=== PATIENT | male | born 1960 | race Caucasian/White ===

== ENCOUNTER 2021-08-11 18:36 | Emergency (ER) | payer BC, SELFPAY ==
[2021-08-11] VITALS (20 sets, daily range): BP systolic 109–163; BP diastolic 69–102; PULSE 50–72; RESP 9–20; TEMP 36.6–36.9; O2SAT 92–100
--- NOTE | ~2021-08-11 | CT_ITS ---
EXAMINATION: CT abdomen pelvis w con INDICATION: Left lower quadrant pain TECHNIQUE: Computed tomographic images of the abdomen and pelvis were obtained after the administrati on of 100 cc of Omnipaque 350 intravenous contrast. The dose-length product (DLP) was 1551.51 mGy-cm. Automated exposure control and iterative reconstruction technique were employed. COMPARISON: None available FINDINGS: Minimal dependent atelectasis is present in the lung bases. The heart size is normal. There is a small sliding hiatal hernia. The liver, spleen, pancreas, and adrenal glands are normal. Stones are present in the nondistended gallbladder. The right kidney is unremarkable. There is a 9.5 cm cys t of the left kidney. No pathologically enlarged abdominal or pelvic lymph nodes are identified. Ther e is no free intraperitoneal gas or evidence of bowel obstruction. Colonic diverticulosis is noted. T here is wall thickening of the sigmoid colon with edematous stranding of the adjacent pericolic fat. No pericolic abscess or perforation are identified. There is a small amount of inflammatory fluid in the pelvis. There is severe lumbar spondylosis. IMPRESSION: 1. Acute, uncomplicated sigmoid diverticulitis. 2. Cholelithiasis without evidence of cholecystitis. Reviewed, dictated and finalized at location [facility]
--- NOTE | 2021-08-11 18:58 | ED.ABDPAIN ---
HPI - Abdominal Pain General Chief Complaint: Abdominal Pain Stated Complaint: Abdominal Pain Time Seen by Provider: 08/11/21 18:40 Source: patient Mode of arrival: ambulatory Limitations: no limitations History of Present Illness HPI narrative: Patient is a 61-year-old male complaining of left lower quadrant pain, 5 out of 10, sharp, nonradiating started approximately 3 days ago. Patient denies any chest pain, shortness of breath, nausea, vomiting, diarrhea, GI bleeding, fever or chills. Patient was placed on oral antibiotics Cipro and Flagyl due to his history of diverticulitis which presented the same way. Related Data Home Medications Medication Instructions Recorded Confirmed aspirin 81 mg chewable tablet 81 mg PO DAILY 07/01/19 08/04/21 sildenafil 25 mg tablet 25 mg PO DAILY PRN 07/01/19 08/04/21 zl-3-[id number]-epa-fish oil-vit D3 300 cap PO DAILY cap 07/15/20 08/04/21 mg-1,000 mg-1,000 unit capsule albuterol sulfate 90 mcg/actuation 2 puff INHALATION Q4H PRN g 01/18/21 08/04/21 aerosol inhaler Allergies Allergy/AdvReac Type Severity Reaction Status Date / Time lisinopril Allergy Unknown cough Verified 08/04/21 14:51 Review of Systems Review of Systems: All systems reviewed & are unremarkable except as noted in HPI and below Constitutional: Constitutional: Denies body ache(s), Denies chills, Denies excessive sweating, Denies fatigue, Denies fever(s), Denies headache(s), Denies lethargy, Denies malaise, Denies weakness and Denies weight loss Eyes: Eyes: Denies blurry vision, Denies change in vision and Denies loss of vision ENT: Denies dizziness, Denies ear discharge, Denies headache(s), Denies lip swelling, Denies epistaxis, Denies nasal congestion, Denies neck pain, Denies throat swelling and Denies tongue swelling Cardiovascular: Cardiovascular: Denies chest pain, Denies chest pain at rest, Denies chest pain with activity, Denies diaphoresis, Denies rapid heart rate, Denies edema, Denies irregular heart rhythm, Denies lightheadedness, Denies palpitations, Denies dyspnea and Denies dyspnea on exertion Respiratory: Respiratory: Denies chest congestion, Denies cough, Denies hemoptysis, Denies dyspnea and Denies dyspnea on exertion Gastrointestinal: Gastrointestinal: Denies melena, Denies hematochezia, Denies diarrhea, Denies nausea, Denies vomiting and Denies hematemesis Musculoskeletal: Musculoskeletal: Denies abnormal gait, Denies deformity, Denies joint swelling, Denies limited range of motion, Denies neck pain and Denies numbness Neurologic: Denies Abnormal speech present, Denies abnormal gait, Denies confusion, Denies dizziness, Denies headache(s), Denies focal weakness, Denies loss of vision, Denies numbness, Denies Other visual disturbances, Denies Sensory deficit (Neuro) and Denies weakness Psychiatric: Psychiatric: Denies confusion, Denies depression, Denies auditory hallucinations, Denies homicidal ideation and Denies suicidal ideation Endocrine: Endocrine: Denies cold intolerance, Denies excessive sweating, Denies fatigue, Denies heat intolerance and Denies palpitations Hematologic/Lymphatic: Hematologic/Lymphatic: Denies easy bleeding and Denies easy bruising Allergic/Immunologic: Allergic/Immunologic: Denies lip swelling, Denies throat swelling and Denies tongue swelling PMFSH Past Medical History Medical History History of COVID-19 04/2020 Hx of diverticulitis of colon Obesity, unspecified Other hyperlipidemia Family History Family History Father Diabetes mellitus Hypertension Family history of elevated blood lipids Family history of cardiovascular disease Cerebrovascular accident Mother Diabetes mellitus Hypertension Family history of elevated blood lipids Social History Social History Alcohol intake: current
[2021-08-11] MEDS: SODIUM CHLORIDE 0.9% IV 1,000 ML 999 ML IV CONT (19:25)
[2021-08-11 19:26] LABS: Basophils Absolute Auto 0.2 K/mm3 (0.0-0.1); Basophils Percent Auto 1.3 % (0.2-1.2); Eosinophils Absolute Auto 0.8 K/mm3 (0-0.3); Eosinophils Percent Auto 6.1 % (0-4.4); Hematocrit 47.7 % (42.0-52.0); Immature Granulocyte Absolute 0.05 K/mm3 (0.00-0.031); Immature Granulocyte Percent A 0.4 % (0-0.5); Lymphocytes Absolute Auto 2.55 K/mm3 (0.9-3.2); Lymphocytes Percent Auto 20.2 % (18.3-44.2); Mean Corpuscular HGB Conc 33.5 g/dl (32-36); Mean Corpuscular Hemoglobin 29.7 pg (26-34); Mean Corpuscular Volume 88.7 fl (80-100); Mean Platelet Volume 10.8 fl (7.4-10.4); Monocytes Absolute Auto 0.9 K/mm3 (0.1-0.6); Monocytes Percent Auto 7.2 % (2.6-8.5); Neutrophils Absolute Auto 8.2 K/mm3 (1.3-6.7); Neutrophils Percent Auto 64.8 % (45.5-73.1); Platelet Count Result 233 k/mm3 (150-375); Red Blood Count 5.38 M/mm3 (4.6-6.20); Red Cell Distribution Width 12.2 % (11.5-14.5); White Blood Count 12.6 K/mm3 (4.5-10.0)
[2021-08-11 19:35] LABS: Lactic Acid Reflex 0.9 mmol/L (0.7-2.1)
[2021-08-11] MEDS: HYDROmorphone HCL INJ (*CRX) 1 MG/ML SYR 0.5 MG IV PUSH (19:37)
[2021-08-11] MEDS: PROMETHAZINE HCL 25 MG/ML AMPUL 12.5 MG IV PUSH (19:41)
[2021-08-11 19:52] LABS: Alanine Aminotransferase 21 U/L (4-50); Albumin Level 4.9 g/dL (3.5-5.1); Alkaline Phosphatase 110 U/L (38-126); Anion Gap 8 mmol/L (8-16); Aspartate Amino Transferase 31 U/L (17-59); Bilirubin,Total 0.8 mg/dL (0.2-1.3); Blood Urea Nitrogen 13 mg/dL (9-20); Calcium 9.7 mg/dL (8.4-10.2); Carbon Dioxide 30 mmol/L (22-30); Chloride 102 mmol/L (98-107); Estimated CRCL calculation 124 ml/min; Estimated Glomerular Filt Rate > 60; Glucose 111 mg/dL (65-110); Lipase 101 U/L (23-300); Potassium 3.9 mmol/L (3.4-5.0); Sodium 140 mmol/L (137-145)
[2021-08-11] MEDS: metroNIDAZOLE 500 MG/ISO 100ML 500 MG/100 ML BAG 100 MG IVPB (20:34)
--- NOTE | 2021-08-11 20:47 | PC.NURSE ---
Nurse Lelia was unable to scan Flagyl in room 8. Med was verified with cut out and marking machine operator and document manually
== END 2021-08-11 22:35 | disposition home or self-care (01) ==
PROVIDERS: Emergency Provider Emergency Medicine; PCP Family Medicine
DX: K57.32 Diverticulitis of large intestine without perforation or abscess without bleeding (principal); E78.49 Other hyperlipidemia; E66.9 Obesity, unspecified; Z68.36 Body mass index [BMI] 36.0-36.9, adult; Z86.16 Personal history of COVID-19; Z79.82 Long term (current) use of aspirin; K80.20 Calculus of gallbladder without cholecystitis without obstruction
CPT/HCPCS: 36415; 74177; 80053; 83605; 83690; 85025; 96361; 96365; 96366; 96367; 96375; 99284; J0696; J1170; J2550; J7030; Q9967

== ENCOUNTER → 2023-06-22 09:41 | Outpatient (CLI) | payer OTHER, SELFPAY ==
--- NOTE | ~2023-06-22 | MR_ITS ---
MRI of the right knee Clinical history: Medial meniscal tear Technique: Coronal proton density and proton density-weighted images, sagittal proton-density and T2 fat-sat images, and axial proton-density fat-saturated images were acquired. Findings: Anterior and posterior cruciate ligaments are intact. Medial collateral ligament and the la teral collateral ligament complex are intact. Popliteus tendon is intact. There is complex tearing of the posterior horn and body of the medial meniscus, with both vertical an d horizontal tear components. No lateral meniscal tear identified. Articular cartilage is well preserved throughout the knee. There is a intramedullary lesion of the di stal femur, most compatible with enchondroma, measuring 3.1 cm in maximum diameter. Extensor mechanism is intact. Small joint effusion and small Peter's cyst are present. Impression: Complex tearing of the medial meniscus, as detailed above. Small joint effusion with small Peter's cyst. 3.1 cm enchondroma at the distal femur. Reviewed, dictated and finalized at [facility]. SAFETY ASSISTANT Impression: Complex tearing of the medial meniscus, as detailed above. Small joint effusion with small Peter's cyst. 3.1 cm enchondroma at the distal femur.
== END ==
PROVIDERS: PCP Physician Assistant; Visit Provider Physician Assistant
DX: S83.221A Peripheral tear of medial meniscus, current injury, right knee, initial encounter (principal); X58.XXXA Exposure to other specified factors, initial encounter; S83.231A Complex tear of medial meniscus, current injury, right knee, initial encounter; M25.461 Effusion, right knee; M71.21 Synovial cyst of popliteal space [Baker], right knee
CPT/HCPCS: 73721

== ENCOUNTER 2023-10-22 09:10 | Outpatient (CLI) | payer OTHER, SELFPAY ==
--- NOTE | 2023-11-01 14:48 | WPDHOMESLEEP ---
Sleep Study - Home Unattended Date of Study: 10/22/23 Ordering Provider: Yas Nelson MD Interpreting Provider: Kady Colby MD Home Sleep Study Type: Watch PAT Height: 1.91 m Weight: 136.078 kg Body Mass Index: 37.5 Neck Circumference (inches): 19.5 [place]: 6 Reason for Sleep Study Loud snoring, nighttime gastric reflux Sleep History Tyrese Cottrell is a 63-year-old man with complaints of snoring and sometimes apnea. He never awakens from sleep feeling short of breath. He occasionally wakes at night with heartburn, belching or coughing.??He frequently snores, occasionally snores loudly enough that others complain. He never has trouble sleeping when he has a cold. He never wakes up gasping for breath during the night. He occasionally has breathing problems at night. He never sweats excessively at night. He never notices his heart pounding or beating irregularly during the night. He rarely falls asleep during the day. He never falls asleep involuntarily, never falls asleep while driving. He never experiences loss of muscle tone with strong emotion. He never has daytime difficulty at work due to excessive sleepiness. He never feels paralyzed on waking or falling asleep. He rarely experiences vivid dreams upon waking or falling asleep. He never feels afraid of going to sleep. He rarely has nightmares. He occasionally recalls his dreams. He occasionally has thoughts racing through his mind when he wakes up in the middle of the night or when he wakes up in the early childhood hours. He never feels sad or depressed. He rarely feels anxiety. He rarely notices parts of his body jerk. He frequently kicks during the night. He never feels crawling or aching feelings in his legs. He rarely feels leg pain at night. He never has morning jaw pain, never grinds his teeth at night. He never feels bothered by pain during the day, never awakened by pain during the night. He occasionally wakes up feeling stiff in the morning, and he occasionally wakes feeling sore or achy. He rarely awakens with pain in his neck, spine, or joints. Normal bedtime is 10:00 p.m., falling asleep within 15-20 minutes, waking twice at night to urinate, returns to sleep within 5 minutes. Wake time is 6:00 a.m.. He typically gets 7 and a half hours of sleep per night. He takes no naps in the day, and if he does nap, does not feel refreshed afterwards. He works some split shifts. Habits:??Tobacco: never smoker Caffeine:2 servings per day. Alcohol:small amounts, less than a half a drink per day Recreational substances: none PMFSH Past Medical History Medical History History of COVID-19 04/2020 Hx of diverticulitis of colon Obesity, unspecified Other hyperlipidemia Uncontrolled type 2 diabetes mellitus with microalbuminuria Surgical History Surgical History S/P arthroscopic partial lateral meniscectomy of right knee Status post trigger finger release right hand 2nd and 4th fingers Family History Family History Father Diabetes mellitus Hypertension Family history of elevated blood lipids Family history of cardiovascular disease Cerebrovascular accident Mother Diabetes mellitus Hypertension Family history of elevated blood lipids Social History Social History Smoking status: Never smoker Second hand tobacco smoke exposure: No Alcohol intake: current Alcohol use details: occasionally Substance use: never Substance use type: does not use Do You Feel Safe in your Home?: Yes Lack of Transportation: No Lack of Food: Never True Current Housing: I Have Housing Concerned About Future Housing: No Difficulty Paying Gas/Electric Bills: No Difficulty Paying for Meds: No Currently Unemployed: No Education: [employer]
[2023-11-08 23:49] VITALS: BMI 37.5
== END 2023-10-25 07:30 | disposition home or self-care (01) ==
LOC: ANHCSM 09:11
PROVIDERS: PCP Family Medicine; Visit Provider Family Medicine
DX: G47.30 Sleep apnea, unspecified (principal); E11.9 Type 2 diabetes mellitus without complications
CPT/HCPCS: 95800

== ENCOUNTER 2023-12-03 09:41 | Outpatient (CLI) | payer OTHER, SELFPAY ==
--- NOTE | 2023-12-13 12:10 | WPDHOLTEREM ---
Holter/Event Monitor Holter/Event Monitor Date of procedure: 12/03/23 Holter/Event Procedure: 48 Hr Holter Monitor Indications: Atrial flutter Conclusion: 1. 48 hour holter monitor on 12/03/23. 2. Underlying rhythm is sinus rhythm. HR range 39-108 bpm; average HR 64 bpm. HR at 39 bpm was at 06:21. 3. There are 5,978 premature supraventricular complexes, 71 supraventricular couplets, 1,396 supraventricular bigeminy, and 1,326 supraventricular trigeminy. No supraventricular tachycardia. 4. There are 731 premature ventricular complexes, 5 ventricular couplets. No ventricular tachycardia. 5. No sinoatrial or atrioventricular blocks. No significant pauses greater than 2 seconds. 6. No symptoms available for correlation.
== END 2023-12-03 09:42 | disposition home or self-care (01) ==
LOC: ANHCARD 09:43
PROVIDERS: PCP Family Medicine; Visit Provider Family Medicine
DX: I48.91 Unspecified atrial fibrillation (principal)
CPT/HCPCS: 93225; 93226

== ENCOUNTER 2024-05-21 08:08 | Outpatient (CLI) | payer OTHER, SELFPAY ==
[2024-06-15 11:21] VITALS: BMI 34.3
--- NOTE | 2024-06-15 11:21 | WPDHOMESLEEP ---
Sleep Study - Home Unattended Date of Study: 05/21/24 Ordering Provider: Alva Barger DO Interpreting Provider: Alva Barger DO Home Sleep Study Type: Watch PAT Height: 1.91 m Weight: 124.738 kg Body Mass Index: 34.3 Neck Circumference (inches): 19 [place]: 0 Reason for Sleep Study Previously diagnosed SHEKHAR by home study on 10/22/2023 but no documented comorbidities. Needs repeat sleep study to qualify for treatment. Sleep History Tyrese Cottrell is a 64-year-old man with complaints of snoring and sometimes apnea. He never awakens from sleep feeling short of breath. He occasionally wakes at night with heartburn, belching or coughing.??He frequently snores, occasionally snores loudly enough that others complain. He never has trouble sleeping when he has a cold. He never wakes up gasping for breath during the night. He occasionally has breathing problems at night. He never sweats excessively at night. He never notices his heart pounding or beating irregularly during the night. He rarely falls asleep during the day. He never falls asleep involuntarily, never falls asleep while driving. He never experiences loss of muscle tone with strong emotion. He never has daytime difficulty at work due to excessive sleepiness. He never feels paralyzed on waking or falling asleep. He rarely experiences vivid dreams upon waking or falling asleep. He never feels afraid of going to sleep. He rarely has nightmares. He occasionally recalls his dreams. He occasionally has thoughts racing through his mind when he wakes up in the middle of the night or when he wakes up in the software implementation specialist hours. He never feels sad or depressed. He rarely feels anxiety. He rarely notices parts of his body jerk. He frequently kicks during the night. He never feels crawling or aching feelings in his legs. He rarely feels leg pain at night. He never has morning jaw pain, never grinds his teeth at night. He never feels bothered by pain during the day, never awakened by pain during the night. He occasionally wakes up feeling stiff in the morning, and he occasionally wakes feeling sore or achy. He rarely awakens with pain in his neck, spine, or joints. Normal bedtime is 10:00 p.m., falling asleep within 15-20 minutes, waking twice at night to urinate, returns to sleep within 5 minutes. Wake time is 6:00 a.m.. He typically gets 7 and a half hours of sleep per night. He takes no naps in the day, and if he does nap, does not feel refreshed afterwards. He works some split shifts. Habits:??Tobacco: never smoker Caffeine:2 servings per day. Alcohol:small amounts, less than a half a drink per day Recreational substances: none PMFSH Past Medical History Medical History Uncontrolled type 2 diabetes mellitus with microalbuminuria Hx of diverticulitis of colon History of COVID-19 04/2020 Obesity, unspecified Other hyperlipidemia Surgical History Surgical History Status post trigger finger release right hand 2nd and 4th fingers S/P arthroscopic partial lateral meniscectomy of right knee Family History Family History Father Diabetes mellitus Hypertension Family history of elevated blood lipids Family history of cardiovascular disease Cerebrovascular accident Mother Diabetes mellitus Hypertension Family history of elevated blood lipids Social History Social History Smoking status: Never smoker Second hand tobacco smoke exposure: No Alcohol intake: current Alcohol use details: occasionally Substance use: never Substance use type: does not use Do You Feel Safe in your Home?: Yes Lack of Transportation: No Lack of Food: Never True Current Housing: I Have Housing Concerned About Future Housing: No Difficulty Paying Gas/Electric Bills: No Difficulty Paying for Meds: No Currently Unemployed: No Education: Bachelor's Degree Difficulty w/ Childcare or Family Care: No Medications Home Medications ?Medication ?Instructions ?Recorded ?Confirmed ?Type aspirin 81 mg chewable tablet 81 mg PO DAILY 07/01/19 04/16/24 History ko-2-zlk-epa-fish oil-vit D3 300 cap PO DAILY 07/15/20 04/16/24 History mg-1,000 mg-1,000 unit capsule (Fish Oil-Vit D3) albuterol sulfate 90 mcg/actuation 2 puff inhalation Q4H PRN 01/18/21 04/16/24 History aerosol inhaler blood-glucose meter (Accu-Chek #1 ea 09/12/22 04/16/24 Rx Guide Glucose Meter) lancets 28 gauge (1st Tier Unilet #100 ea 09/12/22 04/16/24 Rx ComforTouch Lancet) ascorbic acid (vitamin C) 500 mg mg PO 01/09/23 04/16/24 History capsule omeprazole 20 mg capsule,delayed 20 mg PO DAILY 01/09/23 04/16/24 History release turmeric root extract 538 mg 538 mg PO DAILY 01/09/23 04/16/24 History capsule alpha lipoic acid 300 mg capsule 300 mg PO DAILY 10/11/23 04/16/24 History clobetasol 0.05 % topical cream topical 10/11/23 04/16/24 History coQ10 (ubiquinol) 100 mg capsule 100 mg PO BID 10/11/23 04/16/24 History (Qunol Brad CoQ10) hydroxyzine HCl 25 mg tablet mg PO 10/11/23 04/16/24 History oledwxus-wj-ukdul 300 mcg-K 60 1 tablet PO DAILY 10/11/23 04/16/24 History mcg-lycop 600 mcg-lutein 300 mcg tablet (Centrum Silver Men) metformin 500 mg tablet,extended 500 mg PO BID #180 tabs 12/28/23 04/16/24 Rx release 24 hr atorvastatin 20 mg tablet 20 mg PO DAILY #90 tabs 01/08/24 04/16/24 Rx losartan 100 1 tablet PO DAILY #90 tabs 01/08/24 04/16/24 Rx mg-hydrochlorothiazide 12.5 mg tablet CPAP Equipment #1 ea 01/10/24 04/16/24 Rx blood sugar diagnostic (Accu-Chek #100 ea 02/14/24 04/16/24 Rx Guide test strips) dulaglutide 1.5 mg/0.5 mL 1.5 mg (0.5 mL) subcut WEEKLY #6 mL 04/16/24 04/16/24 Rx subcutaneous pen injector (Trulicity) sildenafil (pulm.hypertension) 20 See Rx Instructions .Route 10/30/24 10/30/24 Rx mg tablet .COMPLEX #90 tabs Trulicity 1.5 mg/0.5 mL 1.5 mg (0.5 mL) subcut WEEKLY #6 mL 05/07/24 Rx subcutaneous pen injector (dulaglutide) Sleep Procedure The sleep study was completed using ViratechPAT a technically adequate device with seven channels: peripheral arterial tone, actigraphy, body position, snore, respiratory movement, pulse oximetry, sleep staging, and heart rate. Prior to using the device, the patient received verbal and written instructions for its application and was provided with the help desk phone number for additional telephonic instruction with 24-hour availability of qualified personnel to answer questions. The study was scored using AASM guidelines. Sleep Architecture The total recording time is 9 hrs, 3 min. The total sleep time is 7 hrs, 28 min. Sleep latency is 17 minutes. REM latency is 55 minutes. The patient had 11 episodes of waking. Sleep architecture shows 18.2% deep sleep, 76.2% light sleep, and (as % Total Sleep Time) showed NREM (Light 76.2%; Deep 18.2%), and a 5.6% stage REM. The patient spent 76.8% of total sleep time in the supine position. Sleep efficiency was 82.50. Respiratory Analysis The overall AHI (pAHI 3%:) is 10.6. The central AHI is 1.0. The AHI was N/A in NREM and N/A in REM sleep. The AHI was 12.1 in Supine and 5.8 in Non-supine sleep. Percent of Evaristo Jacobson respirations is 0.0. Oximetry Data The oxygen desaturation index (CHETNA 4%:) is 3.3. The mean saturation is 94%, and the lowest saturation is 78%. Time spent with saturation < 88% is 0.0 minutes. Snoring Profile Snoring average intensity is 40 dB. The patient snored above 45 decibels for 7.3 minutes, 1.6% of sleep time. Cardiac Profile The average pulse rate is 55 beats per minutes. The lowest pulse rate is 39 bpm. The highest pulse rate reported is 100 bpm. Suspected Afib total duration is 0:04:37, (h:m:sec). The longest Afibevent duration is 0:01:00. Premature beats occur 3.0 per minute. A suspected arrhythmia flagged in the sleep report does not necessarily imply an arrhythmia condition is present, but rather suggests that further investigation should be considered. A-Fib events < 60 seconds may be artifact. Assessment and Plan Assessment and Plan (1) SHEKHAR (obstructive sleep apnea): Code(s): G47.33 - Obstructive sleep apnea (adult) (pediatric) Status: Acute Assessment and Plan: The patient had an overall AHI of 10.6 with desaturation down to 78%. This is consistent with mild sleep apnea. Due to the patient's atrial fibrillation, he qualifies for treatment. I recommend that the patient be prescribed Resmed AirSense 11 AutoPAP 5-15 cm H2O, CPAP mask/filters/tubing and heated humidity. This should be used with all episodes of sleep.? Compliance should be reviewed within 31-90 days of starting therapy for usage greater than 4 hours per night greater than 70% of the nights. The patient should be asked about symptoms such as?excessive daytime sleepiness, quality of sleep, decreased nocturia, increased?mental functioning such as memory, mood, and concentration. Data The data obtained during this sleep study is adequate for interpretation. Certification This sleep study has been reviewed by a board certified sleep medicine physician.
== END 2024-05-22 13:18 | disposition home or self-care (01) ==
LOC: ANHCSM 08:09
PROVIDERS: PCP Family Medicine; Visit Provider Family Medicine
DX: G47.33 Obstructive sleep apnea (adult) (pediatric) (principal); I10 Essential (primary) hypertension
CPT/HCPCS: 95800

== ENCOUNTER 2024-10-30 08:52 | Outpatient (CLI) | payer OTHER, SELFPAY ==
--- NOTE | 2024-10-30 08:56 | EST_ITS ---
Patient Info Name: Tyrese Cottrell Age: 64 years : 1960 Gender: Male Ht: 75 in Wt: 285 lbs BSA: 2.66 m2 Exam Date: 10/30/2024 8:56 AM Patient Status: O Admit Date: 10/30/2024 Exam Type: CA stress test treadmill A treadmill exercise stress test was performed. Staff Attending Provider: Yas Nelson MD Exercise Technologist: Yanira Alvarado Exercise Physician: Roberto Chamberlain DO Summary 1. 1. Negative Nba exercise stress test for ischemic ST changes by ECG criteria. 2. 2. Good functional capacity, achieving 10 METs of workload. 3. 3. Baseline hypertension with hypertensive response to exercise. 4. 4. Appropriate HR response to exercise. 5. 5. Appropriate HR recovery at 1 minute post exercise. 6. 6. No imaging with stress testing. 7. 7. Patient informed of the above results. Protocol: Nba Stress ECG Details Stage: REST Duration (min): 1 min : 27 sec Speed (mph): 0.0 Grade (%): 0 HR (bpm): 61 SBP (mmHg): 140 DBP (mmHg): 89 METS: --- Stage: REST Duration (min): 17 min : 33 sec Speed (mph): 0.0 Grade (%): 0 HR (bpm): 62 SBP (mmHg): 140 DBP (mmHg): 89 METS: --- Stage: STAGE 1 Duration (min): 1 min : 0 sec Speed (mph): 1.7 Grade (%): 10 HR (bpm): 89 SBP (mmHg): 140 DBP (mmHg): 89 METS: --- Stage: STAGE 1 Duration (min): 2 min : 0 sec Speed (mph): 1.7 Grade (%): 10 HR (bpm): 91 SBP (mmHg): 140 DBP (mmHg): 89 METS: --- Stage: STAGE 1 Duration (min): 3 min : 0 sec Speed (mph): 1.7 Grade (%): 10 HR (bpm): 92 SBP (mmHg): 179 DBP (mmHg): 90 METS: --- Stage: STAGE 2 Duration (min): 1 min : 0 sec Speed (mph): 2.5 Grade (%): 12 HR (bpm): 104 SBP (mmHg): 179 DBP (mmHg): 90 METS: --- Stage: STAGE 2 Duration (min): 2 min : 0 sec Speed (mph): 2.5 Grade (%): 12 HR (bpm): 112 SBP (mmHg): 188 DBP (mmHg): 77 METS: --- Stage: STAGE 2 Duration (min): 3 min : 0 sec Speed (mph): 2.5 Grade (%): 12 HR (bpm): 118 SBP (mmHg): 188 DBP (mmHg): 77 METS: --- Stage: STAGE 3 Duration (min): 1 min : 0 sec Speed (mph): 3.4 Grade (%): 14 HR (bpm): 124 SBP (mmHg): 212 DBP (mmHg): 85 METS: --- Stage: STAGE 3 Duration (min): 2 min : 0 sec Speed (mph): 3.4 Grade (%): 14 HR (bpm): 131 SBP (mmHg): 212 DBP (mmHg): 85 METS: --- Stage: STAGE 3 Duration (min): 2 min : 59 sec Speed (mph): 4.2 Grade (%): 16 HR (bpm): 136 SBP (mmHg): 211 DBP (mmHg): 74 METS: --- Stage: RECOVERY Duration (min): 1 min : 0 sec Speed (mph): 0.0 Grade (%): 0 HR (bpm): 102 SBP (mmHg): 212 DBP (mmHg): 77 METS: --- Stage: RECOVERY Duration (min): 2 min : 0 sec Speed (mph): 0.0 Grade (%): 0 HR (bpm): 71 SBP (mmHg): 212 DBP (mmHg): 77 METS: --- Stage: RECOVERY Duration (min): 3 min : 0 sec Speed (mph): 0.0 Grade (%): 0 HR (bpm): 74 SBP (mmHg): 187 DBP (mmHg): 85 METS: --- Stage: RECOVERY Duration (min): 4 min : 0 sec Speed (mph): 0.0 Grade (%): 0 HR (bpm): 69 SBP (mmHg): 187 DBP (mmHg): 85 METS: --- Stage: RECOVERY Duration (min): 5 min : 0 sec Speed (mph): 0.0 Grade (%): 0 HR (bpm): 76 SBP (mmHg): 173 DBP (mmHg): 99 METS: --- Stage: RECOVERY Duration (min): 6 min : 0 sec Speed (mph): 0.0 Grade (%): 0 HR (bpm): 70 SBP (mmHg): 173 DBP (mmHg): 99 METS: --- Stage: RECOVERY Duration (min): 7 min : 0 sec Speed (mph): 0.0 Grade (%): 0 HR (bpm): 71 SBP (mmHg): 166 DBP (mmHg): 99 METS: --- Stage: RECOVERY Duration (min): 7 min : 14 sec Speed (mph): 0.0 Grade (%): 0 HR (bpm): 70 SBP (mmHg): 166 DBP (mmHg): 99 METS: --- Rest HR: 62 bpm Peak HR: 136 bpm Rest Sys BP: 140 mmHg Peak Sys BP: 212 mmHg Max Pred HR: 156 bpm % Max Pred HR: 87 % Target HR: 133 bpm Max RPP: 28,832 bpm*mmHg Toure Score: 3 BP Response: Patient exhibited a hypertensive response with stress Termination Reason: Reached target heart rate or workload Cardiac Symptoms: Shortness of breath Max ST Seg Deviation: 1.20 mm Total Time: 9 min : 0 sec Rest Agn BP: 89 mmHg Peak Gan BP: 85 mmHg Angina Score: None Total METS: 10.3 Resting ECG Sinus rhythm. Stress ECG No ST changes. Arrhythmias None. Report Signatures
--- OUTSIDE RECORDS SUMMARY | 2024-10-30 08:57 | XMS_ITS | Referral Summary ---
Author Organization [facility] Address 1 [place] [address] Care Team Providers Care Well Head Pumper Name Role Phone Milan Nelson MD Primary Care Provider [phone] Makenzie Duran Unavailable [phone] Allergies Active Allergy Reactions Criticality Noted Date Comments Povidone-Iodine Swelling Medium 02/09/2020 Medications atorvastatin (LIPITOR) 20 mg tablet Take 1 tablet (20 mg total) by mouth daily Active multivitamin capsule Take 1 capsule by mouth daily Active ASCORBATE CALCIUM (VITAMIN C ORAL) Take by mouth Active co-enzyme Q-10 50 mg capsule Take 4 capsules (200 mg total) by mouth daily Active alpha lipoic acid 100 mg capsule 3 capsules (300 mg total) Active DOCOSAHEXANOIC ACID/EPA (FISH OIL ORAL) Take by mouth. Activ e FreeStyle Pio 2 [place] misc as directed 2 Active FreeStyle Pio 2 Sensor kit as directed 2 Active metFORMIN XR (GLUCOPHAGE XR) 500 mg 24 hr tablet Take 1 tablet (500 mg total) by mouth 2 (two) times a day 2 Active albuterol HFA (PROVENTIL HFA,VENTOLIN HFA,PROAIR HFA) 90 mcg/actuation inhaler Inhale 2 puffs every 6 (six) hours as needed for wheezing Active losartan-hydroC HLOROthiazide (HYZAAR) 100-12.5 mg per tablet Take 1 tablet by mouth daily 3 Active sildenafiL, pulm.hypertensi on, (REVATIO) 20 mg tablet TAKE 2 TO 3 TABLETS BY MOUTH ONCE DAILY NEEDED FOR ERECTILE DYSFUNCTION 3 Active cholecalciferol (VITAMIN D-3) 2000 unit capsule Take 1 capsule (2,000 Units total) by mouth daily 30 capsule 4 Active HYDROcodone-adriana taminophen (NORCO) 5-325 mg per tabletIndicatio ns:Pain Take 1 tablet by mouth every 6 (six) hours as needed for pain 15 tablet 4 Active ondansetron (ZOFRAN) 4 mg tabletIndicatio ns:Prevention of Post-Operative Nausea and Vomiting Take 1 tablet (4 mg total) by mouth every 6 (six) hours as needed for nausea or vomiting 20 tablet 1 4 Active senna-docusate (PERICOLACE) 8.6-50 mg Take 1 tablet by mouth 2 (two) times a day as needed for constipation 30 tablet 1 4 Active aspirin 81 mg enteric coated tablet Take 1 tablet (81 mg total) by mouth 2 (two) times a day for 14 days Resume once daily after 14 days 4 Active Eliquis 5 mg tablet 4 Active Accu-Chek Guide test strips strip USE DIRECTED TO TEST TWICE A DAY 4 Active clobetasoL (TEMOVATE) 0.05 % cream APPLY TO FEET TWICE A DAY FOR 3 WEEKS 4 Active Trulicity 1.5 mg/0.5 mL pen injector 4 Active Active Problems Problem Noted Date Diagnosed Date Complex tear of medial menis cus of right knee as current injury 06/28/2023 Diverticulitis of large inte arzia without perforation or abscess without bleeding 09/20/2021 Assessment & Plan (09/20/2021 9:07 AM CDT): This seems to be his 3rd attack of uncomplicated diverticulitis. We have gone over conservative means and a high-fiber diet versus surgical intervention given this is his 3rd attack. We have discussed risks and benefits of surgery as well as if he would present emergently with another episode. We have discussed risks of anastomotic leak, need for an open procedure as well as the need for a colostomy. At current time the patient wants to hold off and see if any further attacks developed. He will call us back if anything changes sooner. Type II or unspecified type diabetes mellitus without mention of complication, not stated as uncontrolled 02/09/2020 Impotence of organic origin 02/09/2020 HTN (hypertension) 02/09/2020 Trigger finger 02/09/2020 Hyperlipidemia 10/08/2008 Immunizations Immunization Administration Dates Next Due Td, adsorbed 06/18/2001 Social History Tobacco Use Types Packs/Day Years Used Date Smoking Tobacco: Never Smokeless Tobacco: Never Tobacco Cessation:Counseling Given: Not Answered Alcohol Use Standard Drinks/Week Comments Yes 0 (1 standard drink = 0.6 oz pur e alcohol) AUDIT-C Answer Date Recorded Q1: How often do you have a drink containing alc ohol? Monthly or less 08/23/2023 Q2: How many drinks containi ng alcohol do you have on a typical day when you are drinking? 1 or 2 08/23/2023 Frequency of Binge Drinking Not on file 12/2023 Personal Safety Answer Date Recorded Have you ever been in or are you currently in a harmful physical or emotional relationship or is someone making you feel afraid or unsafe? Denies 08/23/2023 Sex and Gender Information Value Date Recorded Sex Assigned at Not on file Legal Sex Male 12:13 AM HORSE TRAINER Gender Identity Male 08/14/2023 6:40 AM HORSE TRAINER Sexual Orientation Straight 08/14/2023 6: 40 AM HORSE TRAINER Last Filed Vital Signs Vital Sign Reading Time Taken Comments Blood Pressure 143/89 09/06/2023 9:15 AM CDT Pulse 70 09/06/2023 9:15 AM CDT Temperature 36.2 C (97.1 F) 08/23/2023 4:40 PM HORSE TRAINER Respiratory Rate 20 08/23/2023 4:40 PM HORSE TRAINER Oxygen Saturation 100% 08/23/2023 4:40 PM HORSE TRAINER Inhaled Oxygen Concentration - - Weight 137.9 kg (304 lb 1.6 oz) 09/06/2023 9:15 AM CDT Height 190.5 cm (6' 3 ) 09/06/2023 9:15 AM CDT Body Mass Index 38.01 09/06/2023 9:15 AM CDT Plan of Treatment Not on file Procedures Procedure Name Priority Date/Time Associated Diagnosis Comments EGFR Routine 05/02/2021 7:28 AM HORSE TRAINER COLONOSCOPY 04/03/2018 7:52 AM CDT from Last 3 Months or Most Recently Relevant to Health Maintenance Results * eGFR (05/02/2021 7:28 AM HORSE TRAINER) eGFR 97 mL/min/1.7 3 m2 ADA [facility] ([place]) Comment: Interpretive Data Reference Interval Normal >/= 90 mL/min/1.73m2 Mildly decreased* 60 - 89 mL/min/1.73m2 Mildly to moderately decreased 45 - 59 mL/min/1.73m2 Moderately to severely decreased 30 - 44 mL/min/1.73m2 Severely decreased 15 - 29 mL/min/1.73m2 Kidney Failure < 15 mL/min/1.73m2 *Relative to young adult level Estimated glomerular filtration rate is determined by the CKD-EPI equation recommended by the National Kidney Foundation (KDIGO 2012 Clinical Practice Guideline for the Evaluation and Management of Chronic Kidney Disease. Kidney Intnl Suppl Jun 2012;3:1). The CKD-EPI equation should not be used for patients with unstable renal function and has not been validated in children and those over 70. Current interpretive data was last reviewed 2020 Blood 05/02/2021 7:28 AM HORSE TRAINER 05/02/2021 8:09 AM HORSE TRAINER us Sienna Navarro MD LAB BLOOD ORDERABLES Final Result ADA [facility] ([place]) 1 [facility] Department of Laboratories [place], [place] [id number] * COLONOSCOPY (04/03/2018 7:52 AM CDT) Anatomical Region Laterality Modality Other Narrative Procedure Note Adeline Grace MD - 04/03/2018 7:52 AM CDT [facility] Patient Name: Tyrese Cottrell Procedure Date: 04/03/2018 7:52 AM Date of : 1960 Admit Type: Outpatient Age: 57 Gender: Male Attending MD: Adeline Grace MD Room: [facility] ENDOSCOPY ROOM 2 Note Status: Finalized Patient Profile: 57 WM, no family h/o colon cancer, screening. Procedure: Colonoscopy Indications: Screening for colorectal malignant neoplasm, Last colonoscopy: March 2006 Referring MD: Yas Nelson MD Providers: Adeline Grace MD Impression: - One 4 mm polyp in the descending colon, removedwith a jumbo cold forceps. Resected and retrieved. - Diverticulosis in the sigmoid colon. - Internal hemorrhoids. Recommendation: - Await pathology results. - Continue present medications. - [facility] Medicines: Monitored Anesthesia Care Complications: No immediate complications. Estimated Blood Loss: Estimated blood loss: none. Procedure: Pre-Anesthesia Assessment: - Prior to the procedure, a History and Physical was performed, and patient medications and allergieswere reviewed. The patient's tolerance of previous anesthesia was also reviewed. The risks and benefitsof the procedure and the sedation options and riskswere discussed with the patient. All questions were answered, and informed consent was obtained. Prior Anticoagulants: The patient has taken no previous anticoagulant or antiplatelet agents. ASA Grade Assessment: II - A patient with mild systemicdisease. After reviewing the risks and benefits, the patientwas deemed in satisfactory condition to undergo the procedure. The benefits, risks and alternatives of theprocedure and sedation were discussed and informed consent was obtained. All questions were answered. Please referto the signed informed consent document in the medical record. The scope was passed under direct vision.The Pediatric Colonoscope PCF-H190L [id number] was introduced through the anus and advanced to the the cecum, identified by appendiceal orifice andileocecal valve. The colonoscopy was performed without difficulty. The patient tolerated the procedurewell. The quality of the bowel preparation wasexcellent. Findings: The perianal and digital rectal examinations were normal including prostate exam. The terminal ileum was normal. The cecum appeared normal. A 4 mm polyp was found in the descending colon. The polyp was flat.The polyp was removed with a jumbo cold forceps. Resection and retrieval were complete. Multiple small-mouthed diverticula were found in the sigmoid colon. Otherwise the colon was unremarkable. Internal hemorrhoids were found during retroflexion. The hemorrhoids were small. Electronically signed by Adeline Grace M.D. Adeline Grace MD 04/03/2018 8:39:05 AM Number of Addenda: 0 Note Initiated On: 04/03/2018 7:52 AM Procedure Code(s): --- Professional --- 02126, Colonoscopy, flexible; with biopsy, single or multiple Diagnosis Code(s): --- Professional --- Z12.11, Encounter for screening for malignant neoplasm of colon K64.8, Other hemorrhoids D12.4, Benign neoplasm of descending colon K57.30, Diverticulosis of large intestine without perforation orabscess without bleeding CPT copyright 2017 [employer]. All rights reserved. The codes documented in this report are preliminary and upon crusher assembler reviewmay be revised to meet current compliance requirements. Recognized by the [place] [employer] for promoting quality in endoscopy Adeline Grace MD ENDOSCOPY PROCEDURES Final Result from Last 3 Months or Most Recently Relevant to Health Maintenance Insurance [facility] O [facility] Advance Directives For more information, please contact: [phone] * Full Code (Latest Code Status on File) Date Activated Date Inactivated Comments 04/03/2018 7:21 AM 04/03/2018 11:15 AM * Full Code Date Activated Date Inactivated Comments 04/03/2018 7:20 AM 04/03/2018 7:20 AM Care Teams Well Head Pumper Relationship Specialty Start Date End Date Milan Nelson MD PCP - General 04/03/18 Makenzie Duran PA [address] [place] [address] DR FITZPATRICK [address] [place] [address] Physician Procurement Manager Orthopedic Surgery 08/23/23
--- OUTSIDE RECORDS SUMMARY | 2024-10-30 08:57 | XMS_ITS | Clinical Summary ---
Author Organization [facility] Address [address] [place] [address] Care Team Providers Care Supervisor Cell Efficiency Name Role Phone Unavailable Primary Care Provider Unavailabl e Social History Tobacco Use Types Packs/Day Years Used Date Smoking Tobacco: Never Assessed Sex and Gender Information Value Date Recorded Sex Assigned at Not on file Legal Sex Male 7:07 PM CDT Gender Identity Not on file Sexual Orientation Not on file Plan of Treatment Health Maintenance Due Date Last Done Comments Colorectal Cancer Screening Colonoscopy (10 Years) 1960 Annual Physical 1963 Hepatitis C 1978 DTaP, Tdap and Td Vaccines ( 1 - Tdap) 1979 Pneumococcal Vaccine: 50+ Ye ars (1 of 1 - PCV) 2010 Zoster Vaccines (1 of 2) 2010 COVID-19 Vaccine ( - 2023-2 5 season) 2024 RSV Immunization or 60+ Years (1 - 1-dose 75+ series) 2035 Meningococcal B Vaccine Aged Out No l onger eligible based on patient's age to complete this topic Meningococcal Vaccine Aged Out No sameera jennifer eligible based on patient's age to complete this topic RSV Immunizations Under 20 Months Aged Out No longer eligible based on patient's age to complete this topic
--- OUTSIDE RECORDS SUMMARY | 2024-10-30 08:57 | XMS_ITS | Clinical Summary ---
Author Organization [facility] Address [address] [place] [address] Care Team Providers Care Human Resources Project Manager Name Role Phone Milan Nelson MD Primary Care Provider [phone] Makenzie Duran Unavailable [phone] Allergies Active Allergy Reactions Criticality Noted Date [...] by mouth. Activ e FreeStyle Pio 2 [place] misc as directed 2 Active FreeStyle Pio [...] current injury 06/28/2023 Diverticulitis of large inte razia without perforation or abscess without bleeding 09/20/2021 [...] Administration Dates Next Due Td, adsorbed 06/18/2001 Surgical History Surgery Date Site/Laterality Comments TONSILLECTOMY COLONOSCOPY 12 yrs ago FIBULA FRACTURE SURGERY Right HERNIA REPAIR Left inguinal hernia repair Medical History Medical History Date Comments Hx Other Medical Gastric Reflux Hx Other Medical High Cholestero l Type 2 diabetes mellitus (HCC) D iabetes type 2 Hypertension Hypertension Hx Other Medical left Inguinal H ernia 2011 Hx Other Medical Right Fibula fr acture Apr 2006 Diverticulosis Motion sickness Asthma GERD (gastroesophageal reflux disease) Family History Medical History Relation Name Comments Diabetes Other 1 Family history of Diabetes mellitus; Hypertension Other 2 Family history of Hypertension; Stroke Other 3 Family history of Stroke; Other Other 4 Family history of Cognitive Impairment; Relation Name Status Comments Other 1 Other 2 Other 3 Other 4 Social History Tobacco Use Types Packs/Day Years [...] on file Legal Sex Male 12:13 AM SHANK CEMENTER HAND Gender Identity Male 08/14/2023 6:40 AM SHANK CEMENTER HAND Sexual Orientation Straight 08/14/2023 6: 40 AM SHANK CEMENTER HAND Obstetrics History Last Filed Vital Signs Vital Sign Reading Time Taken Comments Blood Pressure 143/89 09/06/2023 9:15 AM CDT Pulse 70 09/06/2023 9:15 AM CDT Temperature 36.2 C (97.1 F) 08/23/2023 4:40 PM SHANK CEMENTER HAND Respiratory Rate 20 08/23/2023 4:40 PM SHANK CEMENTER HAND Oxygen Saturation 100% 08/23/2023 4:40 PM SHANK CEMENTER HAND Inhaled Oxygen Concentration - - Weight 137.9 kg (304 lb 1.6 oz) 09/06/2023 9:15 AM CDT Height 190.5 cm (6' 3 ) 09/06/2023 9:15 AM CDT Body Mass Index 38.01 09/06/2023 9:15 AM CDT Plan of Treatment Health Maintenance Due Date Last Done Comments Albumin Creatinine Ratio, Urine 1960 Depression Screening 1960 Hemoglobin A1C 1960 Hepatitis C Screening 1960 Prostate Cancer Screening-PSA 1960 Dilated Eye Exam 1960 Foot Exam 1960 Hepatitis B Screening 1978 Regular Well Visit/Exam 18-64 1978 Pneumococcal vaccine <65 (1 of 2 - PCV) 1979 DTaP/Tdap/Td Vaccine (1 - Tdap) 06/19/2001 2 Zoster Vaccine (1 of 2) 2010 Lipid Panel 04/12/2014 04/12/2013 eGFR 05/02/2022 05/02/2021 Covid-19 Vaccine ( season) 2024, 08/20/2020 Influenza Vaccine (#1) 2024 06/07/2023 Colon Cancer Screening-Colonoscopy 04/03/20282017 Colon Cancer Screening-CT Colonography Discontinued Colon Cancer Screening-DNA Stool Discontinued 04/03/20 Colon Cancer Screening-FIT Discontinued 04/03/2018 Colon Cancer Screening-Sigmoidoscopy Discontinued 03/18 Procedures Procedure Name Priority Date/Time Associated Diagnosis Comments EGFR Routine 05/02/2021 7:28 AM SHANK CEMENTER HAND COLONOSCOPY 04/03/2018 7:52 AM CDT from Last 3 Months or Most Recently Relevant to Health Maintenance Results * eGFR (05/02/2021 7:28 AM SHANK CEMENTER HAND) eGFR 97 mL/min/1.7 3 m2 ADA [facility] ([place]) Comment: Interpretive Data Reference Interval Normal >/= [...] last reviewed 2020 Blood 05/02/2021 7:28 AM SHANK CEMENTER HAND 05/02/2021 8:09 AM SHANK CEMENTER HAND us Sienna Navarro MD LAB BLOOD ORDERABLES Final Result ADA [facility] ([place]) 1 [facility] Department of Laboratories [place], [place] [id number] * COLONOSCOPY (04/03/2018 7:52 AM CDT) Anatomical Region Laterality Modality Other Narrative Procedure Note Adeline Grace MD - 04/03/2018 7:52 AM CDT [facility] Patient Name: Tyrese Cottrell Procedure Date: 04/03/2018 7:52 AM Date of : 1960 Admit Type: Outpatient Age: 57 Gender: Male Attending MD: Adeline Grace MD Room: [facility] END[facility] 2 Note Status: Finalized [...] medications. - [facility] Medicines: Monitored Anesthesia Care Complications: No [...] passed under direct vision.The Pediatric Colonoscope PCF-H190L [id number] was introduced through the anus and advanced [...] 7:52 AM Procedure Code(s): --- Professional --- 55530, Colonoscopy, flexible; with biopsy, single or multiple Diagnosis Code(s): --- Professional --- Z12.11, Encounter for screening for malignant neoplasm of colon K64.8, Other hemorrhoids D12.4, Benign neoplasm of descending colon K57.30, Diverticulosis of large intestine without perforation orabscess without bleeding CPT copyright 2017 [employer]. All rights reserved. The codes documented in this report are preliminary and upon director software quality assurance reviewmay be revised to meet current compliance requirements. Recognized by the [place] [employer] for promoting quality in endoscopy Adeline Grace MD ENDOSCOPY PROCEDURES Final Result from Last 3 Months or Most Recently Relevant to Health Maintenance [facility] O [facility] O Advance Directives For more information, please contact: [phone] * Full Code (Latest Code Status on File) Date Activated Date Inactivated Comments 04/03/2018 7:21 AM 04/03/2018 11:15 AM * Full Code Date Activated Date Inactivated Comments 04/03/2018 7:20 AM 04/03/2018 7:20 AM Care Teams Human Resources Project Manager Relationship Specialty Start Date End Date Milan Nelson MD PCP - General 04/03/18 Makenzie Duran PA [address] [place] [address] DR FITZPATRICK [address] [place] [address] Physician Bobbin Cleaning Machine Operator Orthopedic Surgery 08/23/23
== END 2024-10-30 08:53 | disposition home or self-care (01) ==
LOC: ANHCARD 08:53
PROVIDERS: PCP Family Medicine; Visit Provider Family Medicine
DX: I48.91 Unspecified atrial fibrillation (principal); I10 Essential (primary) hypertension
CPT/HCPCS: 93017

== ENCOUNTER 2024-11-14 14:31 | Outpatient (CLI) | payer OTHER, SELFPAY ==
--- OUTSIDE RECORDS SUMMARY | 2024-11-14 14:35 | XMS_ITS | Clinical Summary ---
Author Organization [facility] Address [address] [place] [address] Care Team Providers Care Lime Kiln Worker Name Role Phone Milan Nelson MD Primary Care Provider [phone] Makenzie Duran Unavailable [phone] Allergies Active Allergy Reactions Criticality Noted Date [...] by mouth. Activ e FreeStyle Pio 2 [place] misc as directed 2 Active FreeStyle Pio [...] on file Legal Sex Male 12:13 AM CORN GROWER Gender Identity Male 08/14/2023 6:40 AM CORN GROWER Sexual Orientation Straight 08/14/2023 6: 40 AM CORN GROWER Obstetrics History Last Filed Vital Signs Vital Sign Reading Time Taken Comments Blood Pressure 143/89 09/06/2023 9:15 AM CDT Pulse 70 09/06/2023 9:15 AM CDT Temperature 36.2 C (97.1 F) 08/23/2023 4:40 PM CORN GROWER Respiratory Rate 20 08/23/2023 4:40 PM CORN GROWER Oxygen Saturation 100% 08/23/2023 4:40 PM CORN GROWER Inhaled Oxygen Concentration - - Weight 137.9 kg (304 lb 1.6 oz) 09/06/2023 9:15 AM CDT Height 190.5 cm (6' 3) 09/06/2023 9:15 AM CDT Body Mass Index [...] Vaccine ( season) 2024, 08/20/2020 Influenza Vaccine (Season Ended) 2025 06/07/20 23 Colon Cancer Screening-Colonoscopy 04/03/20282017 Colon Cancer Screening-CT Colonography Discontinued Colon Cancer Screening-DNA Stool Discontinued 04/03/20 18 Colon Cancer Screening-FIT Discontinued 04/03/2018 Colon Cancer Screening-Sigmoidoscopy Discontinued 03/18 Procedures Procedure Name Priority Date/Time Associated Diagnosis Comments EGFR Routine 05/02/2021 7:28 AM CORN GROWER COLONOSCOPY 04/03/2018 7:52 AM CDT from Last 3 Months or Most Recently Relevant to Health Maintenance Results * eGFR (05/02/2021 7:28 AM CORN GROWER) eGFR 97 mL/min/1.7 3 m2 ADA ROMERO [...] last reviewed 2020 Blood 05/02/2021 7:28 AM CORN GROWER 05/02/2021 8:09 AM CORN GROWER us Sienna Navarro MD LAB BLOOD ORDERABLES Final Result ADA NICK ([place]) 1 [facility] Department of Laboratories [place], [place] [id number] * COLONOSCOPY (04/03/2018 7:52 AM CDT) Anatomical Region Laterality Modality Other Narrative Procedure Note Adeline Grace MD - 04/03/2018 7:52 AM CDT [facility] Patient Name: Tyrese Cottrell Procedure Date: 04/03/2018 7:52 AM Date of : 1960 Admit Type: Outpatient Age: 57 Gender: Male Attending MD: Adeline Grace MD Room: [facility] ENDOSCOPY ROOM 2 Note Status: Finalized Patient [...] medications. - [facility] Medicines: Monitored Anesthesia Care Complications: No immediate [...] passed under direct vision.The Pediatric Colonoscope PCF-H190L [id number] was introduced through the anus and advanced [...] 7:52 AM Procedure Code(s): --- Professional --- 28978, Colonoscopy, flexible; with biopsy, single or multiple Diagnosis Code(s): --- Professional --- Z12.11, Encounter for screening for malignant neoplasm of colon K64.8, Other hemorrhoids D12.4, Benign neoplasm of descending colon K57.30, Diverticulosis of large intestine without perforation orabscess without bleeding CPT copyright 2017 [employer]. All rights reserved. The codes documented in this report are preliminary and upon pre coder reviewmay be revised to meet current compliance requirements. Recognized by the [employer] for promoting quality in endoscopy Adeline Grace MD ENDOSCOPY PROCEDURES Final Result from Last 3 Months or Most Recently Relevant to Health Maintenance [facility] O Advance Directives For more information, please contact: [phone] * Full Code (Latest Code Status on File) Date Activated Date Inactivated Comments 04/03/2018 7:21 AM 04/03/2018 11:15 AM * Full Code Date Activated Date Inactivated Comments 04/03/2018 7:20 AM 04/03/2018 7:20 AM Care Teams Lime Kiln Worker Relationship Specialty Start Date End Date Milan Nelson MD PCP - General 04/03/18 Makenzie Duran PA [address] [place] [address] DR FITZPATRICK [address] [place] [address] Physician Caponizer Orthopedic Surgery 08/23/23
--- OUTSIDE RECORDS SUMMARY | 2024-11-14 14:35 | XMS_ITS | Referral Summary ---
Author Organization [facility] Address [address] [place] [address] Care Team Providers Care Capper Machine Operator Name Role Phone Milan Nelson MD Primary Care Provider [phone] Makenzie Duran Unavailable [phone] Allergies Active Allergy Reactions Criticality Noted Date [...] by mouth. Activ e FreeStyle Pio 2 [place] misc as directed 2 Active FreeStyle Pio [...] on file Legal Sex Male 12:13 AM PATTERNMAKER SAMPLE Gender Identity Male 08/14/2023 6:40 AM PATTERNMAKER SAMPLE Sexual Orientation Straight 08/14/2023 6: 40 AM PATTERNMAKER SAMPLE Last Filed Vital Signs Vital Sign Reading Time Taken Comments Blood Pressure 143/89 09/06/2023 9:15 AM CDT Pulse 70 09/06/2023 9:15 AM CDT Temperature 36.2 C (97.1 F) 08/23/2023 4:40 PM PATTERNMAKER SAMPLE Respiratory Rate 20 08/23/2023 4:40 PM PATTERNMAKER SAMPLE Oxygen Saturation 100% 08/23/2023 4:40 PM PATTERNMAKER SAMPLE Inhaled Oxygen Concentration - - Weight 137.9 kg (304 lb 1.6 oz) 09/06/2023 9:15 AM CDT Height 190.5 cm (6' 3) 09/06/2023 9:15 AM CDT Body Mass Index 38.01 09/06/2023 9:15 AM CDT Plan of Treatment Not on file Procedures Procedure Name Priority Date/Time Associated Diagnosis Comments EGFR Routine 05/02/2021 7:28 AM PATTERNMAKER SAMPLE COLONOSCOPY 04/03/2018 7:52 AM CDT from Last 3 Months or Most Recently Relevant to Health Maintenance Results * eGFR (05/02/2021 7:28 AM PATTERNMAKER SAMPLE) eGFR 97 mL/min/1.7 3 m2 [facility] ([place]) Comment: Interpretive Data Reference Interval Normal >/= [...] last reviewed 2020 Blood 05/02/2021 7:28 AM PATTERNMAKER SAMPLE 05/02/2021 8:09 AM PATTERNMAKER SAMPLE us Sienna Navarro MD LAB BLOOD ORDERABLES Final Result [facility] ([place]) [facility] Department of Laboratories [place], [place] [id number] * COLONOSCOPY (04/03/2018 7:52 AM CDT) Anatomical Region Laterality Modality Other Narrative Procedure Note Adeline rGace MD - 04/03/2018 7:52 AM CDT [facility] Patient Name: Tyrese Cottrell Procedure Date: 04/03/2018 7:52 AM Date of : 1960 Admit Type: Outpatient Age: 57 Gender: Male Attending MD: Adeline Grace MD Room: [facility] ENDOSCOPY ROOM 2 Note Status: Finalized Patient [...] medications. - [facility] Medicines: Monitored Anesthesia Care Complications: No immediate [...] passed under direct vision.The Pediatric Colonoscope [id number] was introduced through the anus and advanced [...] 7:52 AM Procedure Code(s): --- Professional --- 88930, Colonoscopy, flexible; with biopsy, single or multiple Diagnosis Code(s): --- Professional --- Z12.11, Encounter for screening for malignant neoplasm of colon K64.8, Other hemorrhoids D12.4, Benign neoplasm of descending colon K57.30, Diverticulosis of large intestine without perforation orabscess without bleeding CPT copyright 2017 [employer]. All rights reserved. The codes documented in this report are preliminary and upon medical coder reviewmay be revised to meet current compliance requirements. Recognized by the [employer] for promoting quality in endoscopy Adeline Grace MD ENDOSCOPY PROCEDURES Final Result from Last 3 Months or Most Recently Relevant to Health Maintenance Insurance [facility] O [facility] Advance Directives For more information, please contact: [phone] * Full Code (Latest Code Status on File) Date Activated Date Inactivated Comments 04/03/2018 7:21 AM 04/03/2018 11:15 AM * Full Code Date Activated Date Inactivated Comments 04/03/2018 7:20 AM 04/03/2018 7:20 AM Care Teams Capper Machine Operator Relationship Specialty Start Date End Date Milan Nelson MD PCP - General 04/03/18 Makenzie Duran PA [address] [place] [address] DR FITZPATRICK [address] [place] [id number] Physician Staff [employer] Officer Orthopedic Surgery 08/23/23
--- NOTE | 2024-11-14 14:37 | ECHO_ITS ---
Patient Info Name: Tyrese Cottrell Age: 64 years : 1960 Gender: Male Ht: 75 in Wt: 280 lbs BSA: 2.63 m2 HR: 59 bpm BP: 125 / 86 mmHg Technical Quality: Good Exam Date: 11/14/2024 2:52 PM Patient Status: O Admit Date: 11/14/2024 Exam Type: CA echo doppler color flow Complete two-dimensional, color flow and Doppler transthoracic echocardiogram is performed. Arc Welding Machine Operator: Yessica Carlton Attending Provider: Yas Nelson MD Summary 1. Complete two-dimensional, color flow and Doppler transthoracic echocardiogram is performed. 2. Left ventricular chamber dimension is normal. 3. Left ventricular systolic function is normal, estimated at 60-65. 4. There is moderate concentric increased left ventricular wall thickness. 5. The left ventricular diastolic function is grade I diastolic dysfunction. 6. E/e' 6 is not elevated. 7. Left atrial chamber dimension is mildly enlarged. 8. There is trace tricuspid valve regurgitation. 9. No pulmonary hypertension, estimated pulmonary arterial systolic pressure is 26 mmHg. 10. There is trace pulmonic regurgitation. 11. The prox ascending aorta size is borderline dilated at 4.0 cm. Left Ventricle E/e' 6 is not elevated. Left ventricular chamber dimension is normal. Left ventricular systolic function is normal, estimated at 60-65. There is moderate concentric increased left ventricular wall thickness. The left ventricular diastolic function is grade I diastolic dysfunction. Right Ventricle Right ventricular chamber dimension is normal. Right ventricular systolic function is normal. Left Atria Left atrial chamber dimension is mildly enlarged. Right Atria Right atrial chamber dimension is normal. Aortic Valve The aortic valve is trileaflet. There is no aortic valve stenosis. There is no aortic valve regurgitation. Pulmonic Valve There is trace pulmonic regurgitation. Mitral Valve There is no mitral valve stenosis. There is no mitral valve regurgitation. Tricuspid Valve There is trace tricuspid valve regurgitation. No pulmonary hypertension, estimated pulmonary arterial systolic pressure is 26 mmHg. Pericardium/Pleural There is no pericardial effusion. Inferior Vena Cava Normal inferior vena cava with >50% collapse upon inspiration consistent with normal right atrial pressure, 5 mmHg. Aorta The aortic root size at the sinus of Valsalva is normal. The prox ascending aorta size is borderline dilated at 4.0 cm. Left Ventricular Outflow Tract Name Value Normal LVOT 2D LVOT Diameter 2.3 cm LVOT Doppler LVOT Peak Velocity 135 cm/s LVOT Peak Gradient 7 mmHg LVOT Mean Gradient 4 mmHg LVOT VTI 27 cm LVOT VTI/AV VTI Ratio 0.8 LVOT Stroke Volume 117 ml LVOT CO 23.2 l/min LVOT CI 8.8 l/min/m2 Pulmonic Valve Name Value Normal PV Doppler PV Peak Velocity 92 cm/s PV Peak Gradient 3 mmHg Mitral Valve Name Value Normal MV Diastolic Function MV E Peak Velocity 68 cm/s MV A Peak Velocity 75 cm/s MV E/A 0.9 MV Decel Time (PW) 300 ms MV Annular TDI MV E/e' (Septal) 9.1 MV E/e' (Lateral) 5.5 MV E/e' (Average) 7.3 Tricuspid Valve Name Value Normal TV Regurgitation Doppler TR Peak Velocity 229 cm/s TR Peak Gradient 19 mmHg Estimated PAP/RSVP RA Pressure 5 mmHg <=5 PA Systolic Pressure 26 mmHg <36 RV Systolic Pressure 26 mmHg <36 TV Annular TDI TV Lateral Bijal s' Velocity 14.9 cm/s >=9.5 Aorta Name Value Normal Ascending Aorta Ao Root Diameter (MM) 4.1 cm Ao Root Diam Index (MM) 1.6 cm/m2 Aortic Valve Name Value Normal AV Doppler AV Peak Velocity 158 cm/s AV Peak Gradient 10 mmHg AV Mean Gradient 6 mmHg AV VTI 35 cm AV Area (Cont Eq VTI) 3.3 cm2 >=3.0 AV Area (Cont Eq Kristian) 3.7 cm2 AV DI (Kristian) 0.86 AV Regurgitation 2D LVOT Area 4.3 cm2 Ventricles Name Value Normal LV Dimensions 2D/MM IVS Diastolic Thickness (2D) 1.5 cm 0.6-1.0 LVID Diastole (2D) 4.3 cm 4.2-5.8 LVIW Diastolic Thickness (2D) 1.4 cm 0.6-1.0 LVID Systole (2D) 2.9 cm 2.5-4.0 LVOT Diameter 2.3 cm LV Mass (2D Cubed) 252.33 g 88.00-224.00 LV Mass Index (2D Cubed) 96 g/m2 49-115 Relative Wall Thickness (2D) 0.66 <=0.42 LV Fractional Shortening/Ejection Fraction 2D/MM LV Fractional Shortening (2D) 32 % 25-43 LV EF (2D Teichholz) 61 % LV Diastolic Volume (4C MOD) 130 ml LV EF (4C MOD) 51 % LV Diastolic Volume (2C MOD) 112 ml LV EF (2C MOD) 64 % LV Diastolic Volume (BP MOD) 124 ml 62-150 LV Diastolic Volume Index (BP MOD) 47 ml/m2 34-74 LV Systolic Volume (BP MOD) 50 ml 21-61 LV Systolic Volume Index (BP MOD) 19 ml/m2 11-31 LV EF (BP MOD) 59 % 52-72 LV Diastolic Length (4C) 8.7 cm LV Systolic Length (4C) 7.1 cm LV Stroke Volume (4C MOD) 67 ml RV Dimensions 2D/MM RVID Diastole (2D) 4.4 cm 2.1-3.5 Atria Name Value Normal LA Dimensions LA Dimension (MM) 0.0 cm 3.0-4.0 LA Volume (4C A-L) 60 ml LA Volume (BP A-L) 77 ml RA Dimensions RA Systolic Major [place] Length (4C) 5.5 cm 2.1-2.7 RA Area (4C) 17.8 cm2 <=18.0 Report Signatures
== END 2024-11-14 14:32 | disposition home or self-care (01) ==
LOC: ANHCARD 14:32
PROVIDERS: PCP Family Medicine; Visit Provider Family Medicine
DX: I48.91 Unspecified atrial fibrillation (principal); I51.89 Other ill-defined heart diseases; E78.2 Mixed hyperlipidemia
CPT/HCPCS: 93306